=== PATIENT | male | born 1990 | race American Indian/Alaskan Native ===

== ENCOUNTER 2016-05-15 10:41 | Emergency (ER) | payer OTHER ==
[2016-05-15] MEDS ORDERED: GEODON IM ONE ×2 (10:46→10:56)
[2016-05-15] MEDS ORDERED: ATIVAN ONE (10:46)
[2016-05-15] MEDS ORDERED: WATER FOR INJ (PF) 10 ML ONE (10:49)
[2016-05-15] MEDS ORDERED: ATIVAN IM ONE (10:56)
[2016-05-15 12:02] LABS: Basophils % (Auto) 0.2 % (0.0-1.8); Hematocrit 33.9 % (35.5-45.6); Hemoglobin 11.3 gm/dl (11.8-15.2); Mean Corpuscular HGB Conc 33 % (32-34); Mean Corpuscular Hemoglobin 28 pg (28-32); Mean Corpuscular Volume 84 fl (84-94); Platelet Count 236 K/mm3 (140-440); Red Blood Count 4.02 M/mm3 (3.65-5.03); Red Cell Distribution Width 13.9 % (13.2-15.2); White Blood Count 9.1 K/mm3 (4.5-11.0)
[2016-05-15 12:03] LABS: Urine Drugs of Abuse Note Disclamer
[2016-05-15 12:28] LABS: Anion Gap 17 mmol/L; BUN/Creatinine Ratio 18.18; Blood Urea Nitrogen 20 mg/dL (9-20); Calcium 8.9 mg/dL (8.4-10.2); Carbon Dioxide 24 mmol/L (22-30); Chloride 102.8 mmol/L (98-107); Creatine Kinase MB 4.5 ng/mL (0.0-4.0); Glucose 109 mg/dL (75-100); Potassium 3.4 mmol/L (3.6-5.0); Sodium 140 mmol/L (137-145)
[2016-05-15 12:30] LABS: Creatine Kinase 513 units/L (55-170)
[2016-05-15 12:33] LABS: Bilirubin,Urine NEG (Negative); Blood,Urine NEG (Negative); Ketones,Urine TR mg/dL (Negative); Leukocyte Esterase,Urine NEG (Negative); Mucus,Urine 2+ /HPF; Nitrite,Urine NEG (Negative); Urobilinogen,Urine < 2.0 mg/dL (<2.0)
--- NOTE | 2016-05-15 13:17 | Emergency Department Report ---
ED General Adult HPI - General Chief complaint: Psych Stated complaint: SCHIZOPHRENIA Time Seen by Provider: 05/15/16 10:56 Source: police Mode of arrival: Carried (Peds) Limitations: Altered Mental Status - History of Present Illness Initial comments: Patient presents to the emergency department acutely agitated and floridly psychotic. He has hyper confucianist speech content. He is obviously delusional. He has loose associations and flight of ideas. He required both physical and chemical restraint. -: unknown Severity scale (0 -10): 0 Treatments Prior to Arrival: none - Related Data Home Medications Medication Instructions Recorded Confirmed Last Taken Unobtainable 05/15/16 05/15/16 Unknown Allergies Allergy/AdvReac Type Severity Reaction Status Date / Time Unable to Assess Allergy Unverified 05/15/16 11:03 ED Review of Systems ROS: Stated complaint: SCHIZOPHRENIA Other details as noted in HPI Comment: Unobtainable due to pts medical conditions ED Past Medical Hx - Past Medical History Previous Medical History?: Yes Hx Psychiatric Treatment: Yes (SCHIZOPHRENIC) - Surgical History Additional Surgical History: UNKNOWN - Social History Substance Use Type: Other (unknown but not unlikely) - Medications Home Medications: Home Medications Medication Instructions Recorded Confirmed Last Taken Type Unobtainable 05/15/16 05/15/16 Unknown History ED Physical Exam - General Limitations: Altered Mental Status General appearance: alert (hyperalert), other (agitated) - Head Head exam: Present: atraumatic, normocephalic - Eye Eye exam: Present: normal appearance, PERRL, EOMI. Absent: scleral icterus - ENT ENT exam: Present: normal exam, mucous membranes moist - Neck Neck exam: Present: normal inspection. Absent: tenderness, meningismus - Respiratory Respiratory exam: Present: normal lung sounds bilaterally. Absent: respiratory distress - Cardiovascular Cardiovascular Exam: Present: regular rate, normal rhythm. Absent: systolic murmur, diastolic murmur, rubs, gallop - GI/Abdominal GI/Abdominal exam: Present: soft, normal bowel sounds. Absent: distended, tenderness, guarding, rebound - Rectal Rectal exam: Present: deferred - Extremities Exam Extremities exam: Present: normal inspection - Back Exam Back exam: Present: normal inspection - Neurological Exam Neurological exam: Present: altered (floridly psychotic), CN II-XII intact (as testable), normal gait. Absent: motor sensory deficit - Psychiatric Psychiatric exam: Present: agitated, manic - Skin Skin exam: Present: warm, dry, intact, normal color. Absent: rash ED Course Vital Signs 05/15/16 12:00 Temperature 96.7 F L Pulse Rate 84 Respiratory 16 Rate Blood Pressure 126/80 [Left] O2 Sat by Pulse 100 Oximetry - Reevaluation(s) Reevaluation #1: Patient responded well to Geodon and Ativan. He was able to be placed in the communal room and taken out of seclusion. I discussed his management with the mental health counselor. He was placed on Geodon by mouth with when necessary Geodon ordered. He will be admitted to a psychiatric facility. He is now awaiting acceptance. He had a very minimally elevated CK which is not clinically significant. 05/15/16 14:42 05/15/16 14:43 ED Medical Decision Making - Lab Data Result diagrams: 05/15/16 11:48 05/15/16 11:48 Laboratory Results - last 24 hr 05/15/16 05/15/16 05/15/16 11:43 11:43 11:48 WBC 9.1 RBC 4.02 Hgb 11.3 L Hct 33.9 L MCV 84 MCH 28 MCHC 33 RDW 13.9 Plt Count 236 Lymph % (Auto) 5.9 L Whiteside % (Auto) 6.6 Eos % (Auto) 0.0 Baso % (Auto) 0.2 Lymph # 0.5 L Whiteside # 0.6 Eos # 0.0 Baso # 0.0 Seg Neutrophils % 87.3 H Seg Neutrophils # 7.9 H Sodium Potassium Chloride Carbon Dioxide Anion Gap BUN Creatinine Estimated GFR BUN/Creatinine Ratio Glucose Calcium Total Creatine Kinase CK-MB (CK-2) CK-MB (CK-2) Rel Index Troponin T TSH Urine Color Yellow Urine Turbidity Clear Urine pH 6.0 Ur Specific Gordo 1.028 Urine Protein 30 mg/dl Urine Glucose (UA) Neg Urine Ketones Tr Urine Blood Neg Urine Nitrite Neg Urine Bilirubin Neg Urine Urobilinogen < 2.0 Ur Leukocyte Esterase Neg Urine WBC (Auto) 2.0 Urine RBC (Auto) 4.0 Urine Mucus 2+ Salicylates Urine Opiates Screen Presumptive negative Urine Methadone Screen Presumptive negative Acetaminophen Ur Barbiturates Screen Presumptive negative Ur Phencyclidine Scrn Presumptive negative Ur Amphetamines Screen Presumptive negative U Benzodiazepines Scrn Presumptive positive Urine Cocaine Screen Presumptive positive U Marijuana (THC) Screen Presumptive positive Plasma/Serum Alcohol 05/15/16 05/15/16 05/15/16 11:48 11:48 11:48 WBC RBC Hgb Hct MCV MCH MCHC RDW Plt Count Lymph % (Auto) Whiteside % (Auto) Eos % (Auto) Baso % (Auto) Lymph # Whiteside # Eos # Baso # Seg Neutrophils % Seg Neutrophils # Sodium 140 Potassium 3.4 L Chloride 102.8 Carbon Dioxide 24 Anion Gap 17 BUN 20 Creatinine 1.1 Estimated GFR > 60 BUN/Creatinine Ratio 18.18 Glucose 109 H Calcium 8.9 Total Creatine Kinase CK-MB (CK-2) CK-MB (CK-2) Rel Index Troponin T TSH 0.944 Urine Color Urine Turbidity Urine pH Ur Specific Gordo Urine Protein Urine Glucose (UA) Urine Ketones Urine Blood Urine Nitrite Urine Bilirubin Urine Urobilinogen Ur Leukocyte Esterase Urine WBC (Auto) Urine RBC (Auto) Urine Mucus Salicylates < 0.3 L Urine Opiates Screen Urine Methadone Screen Acetaminophen Ur Barbiturates Screen Ur Phencyclidine Scrn Ur Amphetamines Screen U Benzodiazepines Scrn Urine Cocaine Screen U Marijuana (THC) Screen Plasma/Serum Alcohol 05/15/16 05/15/16 05/15/16 11:48 11:48 11:48 WBC RBC Hgb Hct MCV MCH MCHC RDW Plt Count Lymph % (Auto) Whiteside % (Auto) Eos % (Auto) Baso % (Auto) Lymph # Whiteside # Eos # Baso # Seg Neutrophils % Seg Neutrophils # Sodium Potassium Chloride Carbon Dioxide Anion Gap BUN Creatinine Estimated GFR BUN/Creatinine Ratio Glucose Calcium Total Creatine Kinase 513 H CK-MB (CK-2) 4.5 H CK-MB (CK-2) Rel Index 0.8 Troponin T < 0.010 TSH Urine Color Urine Turbidity Urine pH Ur Specific Gordo Urine Protein Urine Glucose (UA) Urine Ketones Urine Blood Urine Nitrite Urine Bilirubin Urine Urobilinogen Ur Leukocyte Esterase Urine WBC (Auto) Urine RBC (Auto) Urine Mucus Salicylates Urine Opiates Screen Urine Methadone Screen Acetaminophen < 15.0 Ur Barbiturates Screen Ur Phencyclidine Scrn Ur Amphetamines Screen U Benzodiazepines Scrn Urine Cocaine Screen U Marijuana (THC) Screen Plasma/Serum Alcohol < 0.01 Critical care attestation.: If time is entered above; I have spent that time in minutes in the direct care of this critically ill patient, excluding procedure time. ED Disposition Clinical Impression: Acute psychosis Schizophrenia Qualifiers: Schizophrenia type: other Qualified Code(s): F20.89 - Other schizophrenia; F20.8 - Other schizophrenia Disposition: DC/TX PSY HOSP/PSY UNIT Is pt being admited?: No Does the pt Need Aspirin: No Condition: Stable Time of Disposition: 15:31
[2016-05-15] MEDS ORDERED: TYLENOL PO PRN (14:35)
[2016-05-15] MEDS ORDERED: ALUM-MAG HYDROX-SIMETH 200-200-20MG/5ML PO PRN (14:35)
[2016-05-15] MEDS ORDERED: GEODON IM PRN (14:35)
[2016-05-15] MEDS ORDERED: MILK OF MAGNESIA PO PRN (14:35)
[2016-05-15] MEDS ORDERED: K-DUR PO ONE ×2 (14:43→18:13)
--- NOTE | 2016-05-16 08:51 | Consultation ---
History of Present Illness - Reason for Consult Consult date: 05/16/16 Reason for consult: Mental Healt Evaluation Requesting physician: RAUL SOTO - Chief Complaint Chief complaint: I am here for God" - History of Present Psychiatric Illness Patient presents to the emergency department acutely agitated and floridly psychotic. He has hyper judaism speech content and flight of ideas. Upon arrival to patient's room, he was wrapped up in bed sheets. Patient stated that he was brought here by "God." Patient is disorganize, with loose associations, and presenting with delusional thoughts. He had to be redirected multiple times to gather information from him. Patient is a poor historian when asked questions about his medical or mental health hx. He stated that he called the police, because he felt that his girlfriend wanted him "killed." He could not elaborate more about this situation. Patient states that he smoke marijuana "sometimes." Patient positive for THC, Benzos, and Cocaine. Patient denies SI/HI 's but acknowledged having anxiety. Medications and Allergies Allergies Allergy/AdvReac Type Severity Reaction Status Date / Time Unable to Assess Allergy Unverified 05/15/16 11:03 Home Medications Medication Instructions Recorded Confirmed Last Taken Type Unobtainable 05/15/16 05/15/16 Unknown History Active Meds: Active Medications Acetaminophen (Tylenol) 650 mg PO Q4HR PRN PRN Reason: Pain MILD(1-3)/Fever >100.5/KING Al Hydrox/Mg Hydrox/Simethicone (Alum-Mag Hydrox-Simeth [id number]/5ml) 30 ml PO Q4HR PRN PRN Reason: Indigestion Magnesium Hydroxide (Milk Of Magnesia) 30 ml PO Q12HR PRN PRN Reason: Constipation Ziprasidone (Geodon) 40 mg PO BID FAIZAN Ziprasidone (Geodon) 10 mg IM Q12H PRN PRN Reason: Agitation Past psychiatric history - Past Medical History Past Medical History: other (Unknown) Past Surgical History: Other (Unknown) - past Psychiatric treatment and history Psych: Anxiety, Schizophrenia ("I have diagnosed myself") psychiatric treatment history: Patient denies any inpatient or outpatient psychiatric services.. - Social History Social history: smoking, other (Lives with girlfriend, has 3 children, GED) Mental Status Exam - Vital signs Last Vital Signs Temp 96.7 F L 05/15/16 12:00 Pulse 84 05/15/16 12:00 Resp 16 05/15/16 12:00 BP 126/80 05/15/16 12:00 Pulse Ox 100 05/15/16 12:00 - Exam Narrative exam: ROS (+) Psychosis Orientation: time, place, person Affect: anxious Mood: congruent with affect Thought content: delusions Thought Process: Tangential Speech: rapid Concentration: distractible Motor activity: other (ambulatory) Level of consciousness: alert Memory: Intact Sleep Symptoms: None ("I sleep 6 to 7 hours a night") Interaction: irritable Results Result Diagrams: 05/15/16 11:48 05/15/16 11:48 Abnormal lab results 05/15/16 05/15/16 05/15/16 Range/Units 11:48 11:48 11:48 Hgb 11.3 L (11.8-15.2) gm/dl Hct 33.9 L (35.5-45.6) % Lymph % (Auto) 5.9 L (13.4-35.0) % Lymph # 0.5 L (1.2-5.4) K/mm3 Seg Neutrophils % 87.3 H (40.0-70.0) % Seg Neutrophils # 7.9 H (1.8-7.7) K/mm3 Potassium 3.4 L (3.6-5.0) mmol/L Glucose 109 H (75-100) mg/dL Total Creatine Kinase (55-170) units/L CK-MB (CK-2) (0.0-4.0) ng/mL Salicylates < 0.3 L (2.8-20.0) mg/dL 05/15/16 Range/Units 11:48 Hgb (11.8-15.2) gm/dl Hct (35.5-45.6) % Lymph % (Auto) (13.4-35.0) % Lymph # (1.2-5.4) K/mm3 Seg Neutrophils % (40.0-70.0) % Seg Neutrophils # (1.8-7.7) K/mm3 Potassium (3.6-5.0) mmol/L Glucose (75-100) mg/dL Total Creatine Kinase 513 H (55-170) units/L CK-MB (CK-2) 4.5 H (0.0-4.0) ng/mL Salicylates (2.8-20.0) mg/dL All other labs normal. Assessment and Plan Assessment and plan: Impression: Acute Psychosis. Patient presents with delusional thoughts and very disorganized at this time. Positive for THC, Benzos, and Cocaine which can exacerbate a psychotic episode. CK is 513, patient was brought in with handcuffs by local police. Recommendation/Plan: Continue 1013 with pending placement to inpatient psychiatric services.
[2016-05-16] MEDS: GEODON PO SCH (22:15)
[2016-05-17] MEDS: GEODON PO SCH ×3 (07:16→22:54)
--- NOTE | 2016-05-17 09:47 | Progress Note ---
Subjective - Reason for Consult Consult date: 05/17/16 Reason for consult: Psychiatry Follow-up - Chief Complaint Chief complaint: I am here for God" Patient presents to the emergency department acutely agitated and floridly psychotic. Today patient is cooperative, but still have protestant speech content with tangential thoughts. He states that he feel better today, but still believe "God" brought him to [facility]. He states that his girlfriend may not want him , but not sure. On previous assessment, patient believed that his girlfriend wanted him . Patient denies SI/HI's or AVH's at this time. Mental Status Exam - Vital signs Last Vital Signs Temp 98.7 F 05/16/16 22:45 Pulse 87 05/16/16 22:45 Resp 18 05/17/16 07:24 BP 118/73 05/16/16 22:45 Pulse Ox 98 05/17/16 07:24 - Exam Orientation: place, person Affect: normal Mood: other ("I feel a little better") Thought content: other (Sabianist speech content) Thought Process: Tangential Perceptions: none Speech: rapid Concentration: distractible Motor activity: normal Level of consciousness: alert Memory: Intact Sleep Symptoms: None ("A couple hours last night") Assessment and Plan Impression: Patient presents with protestant speech content. He is hyper verbal with tangential thoughts. Positive for THC, Benzos, and Cocaine which can exacerbate a psychosis. CK is 513. Recommendation/Plan: Continue 1013 with pending placement to inpatient psychiatric services.
[2016-05-18] MEDS: GEODON PO SCH ×2 (11:01→23:45)
--- NOTE | 2016-05-18 13:39 | Progress Note ---
Subjective - Reason for Consult Consult date: 05/18/16 Reason for consult: psychiatric follow up - Chief Complaint Chief complaint: "I see God when I look in the mirror" Patient presented to the emergency department acutely agitated and floridly psychotic. Today, he is tangential and hyper pentecostalism. Patient denies suicidal or homicidal ideation. He states that he needs help and people don't understand that God talks to him. Mental Status Exam - Vital signs Last Vital Signs Temp 98.6 F 05/18/16 07:25 Pulse 71 05/18/16 07:25 Resp 18 05/18/16 07:25 BP 119/73 05/18/16 07:25 Pulse Ox 100 05/18/16 07:25 - Exam Narrative exam: He is intrusive Orientation: time, place, person Affect: anxious Mood: congruent with affect Thought content: delusions, other (hyperreligious) Thought Process: Tangential, Disorganized Perceptions: other (sees God when he looks in the mirror) Speech: pressured Concentration: distractible Motor activity: restless Memory: Intact Sleep Symptoms: Restless Interaction: cooperative Assessment and Plan Impression: Patient presents with pentecostalism speech content. He is hyper verbal with tangential thoughts. Positive for THC, Benzos, and Cocaine which can exacerbate a psychosis. CK is 513. Recommendation/Plan: Continue 1013 with pending placement to inpatient psychiatric services. Continue Geodon per scheduled dose, 40mg bid for psychosis
--- NOTE | 2016-05-18 15:16 | Event Note ---
Date: 05/18/16 Vital signs reviewed and appreciated. Psychiatric consultation and input appreciated. Patient is pending psychiatric placement at this time. Vital Signs 05/15/16 05/16/16 05/16/16 12:00 09:41 22:45 Temperature 96.7 F L 98.7 F 98.7 F Pulse Rate 84 97 H 87 Respiratory 16 16 18 Rate Blood Pressure 126/80 114/75 118/73 [Left] O2 Sat by Pulse 100 99 98 Oximetry 05/17/16 05/17/16 05/17/16 07:24 07:30 20:00 Temperature 98.1 F 99.0 F Pulse Rate 82 81 Respiratory 18 18 16 Rate Blood Pressure 116/76 124/70 [Left] O2 Sat by Pulse 98 99 99 Oximetry 05/18/16 07:25 Temperature 98.6 F Pulse Rate 71 Respiratory 18 Rate Blood Pressure 119/73 [Left] O2 Sat by Pulse 100 Oximetry
[2016-05-19 09:08] VITALS: BP 119/68
[2016-05-19] MEDS: GEODON PO SCH (09:57)
--- NOTE | 2016-05-19 11:40 | Progress Note ---
Subjective - Reason for Consult Consult date: 05/19/16 Reason for consult: Psychiatry Follow-uo - Chief Complaint Chief complaint: "God is my witness" Patient presented to the emergency department acutely agitated and floridly psychotic. Today patient presents with circumstantial and orthodox thoughts. During conversation he stated, "God is my witness." I asked him to explain and he stated, "You should know." During interview, patient was pacing back and forth to his room. He denies HI/SI's or AVH's at this time. . Mental Status Exam - Vital signs Last Vital Signs Temp 97.6 F 05/19/16 08:00 Pulse 88 05/19/16 08:00 Resp 16 05/19/16 09:08 BP 119/68 05/19/16 08:00 Pulse Ox 100 05/19/16 09:08 - Exam Orientation: time, place, person Affect: anxious Mood: congruent with affect Thought content: grandiose Thought Process: Circumstantial Perceptions: none Speech: rapid Concentration: distractible Motor activity: other (Ambulatory) Level of consciousness: alert Memory: Intact Interaction: cooperative Assessment and Plan Impression: Patient still present with orthodox speech content. He is hyper verbal with circumstantial thoughts. Positive for THC, Benzos, and Cocaine which can exacerbate psychosis. CK is 513. Recommendation/Plan: Continue 1013 with pending placement to inpatient psychiatric services. Continue Geodon 40mg PO bid.
== END 2016-05-19 11:32 ==
LOC: ED 10:41 → EEVIPCON 10:41 → ED 05-19 11:32
DX: F23 Brief psychotic disorder (principal); F20.89 Other schizophrenia
CPT/HCPCS: 36415; 80048; 80307; 81001; 82550; 82553; 84443; 84484; 85025; 96372; 99285; G0480; J2060; J3486; 80320

== ENCOUNTER 2017-03-16 12:38 | Emergency (ER) | payer SELFPAY | END 2017-03-16 13:56 | disposition left against medical advice (07) | LOC: ED 12:38 | DX: K12.2 Cellulitis and abscess of mouth (principal); Z53.21 Procedure and treatment not carried out due to patient leaving prior to being seen by health care provider ==